=== PATIENT | male | born 1965 | race African-American/Black ===

== ENCOUNTER 2019-09-09 09:56 | Emergency (ER) | payer OTHER ==
[~2019-09-09] VITALS: Ht 182.9 cm; Wt 80.0 kg
[2019-09-09 11:09] VITALS: BP 134/76; PULSE 78; RESP 18; Ht 182.9 cm; Wt 80.0 kg
[2019-09-09] MEDS ORDERED: KETOROLAC 60 MG INJ IM STA (11:19)
== END 2019-09-09 12:24 | disposition left against medical advice (07) ==
LOC: FTE 09:56
DX: S69.92XA Unspecified injury of left wrist, hand and finger(s), initial encounter (principal); V18.4XXA Pedal cycle driver injured in noncollision transport accident in traffic accident, initial encounter
CPT/HCPCS: 99282